=== PATIENT | male | born 2000 ===

== ENCOUNTER 2019-07-31 16:53 | Emergency (ER) | payer BC, SELFPAY ==
[2019-07-31 17:00] VITALS: BP 126/71; PULSE 87; RESP 18; O2SAT 99; BMI 24.4
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
[2019-07-31] MEDS: ibuprofen 600 mg Tablet PO (18:53)
--- NOTE | 2019-07-31 20:10 | PC.NURSE ---
Pt refused crutches; states he has some at home. C-collar was applied.
[2019-07-31 20:18] VITALS: BP 124/75; PULSE 88; RESP 12; O2SAT 97
--- NOTE | 2019-08-01 15:25 | DCPLANNER ---
installation manager had message to refer patient to [facility]. installation manager called [facility], faxed patients information to the clinic. installation manager will call for appointment information.
--- NOTE | 2019-08-22 11:58 | DCPLANNER ---
Patient did attend appointment scheduled with [facility] on 08.21.19.
== END 2019-07-31 20:20 | disposition home or self-care (01) ==
PROVIDERS: Emergency Provider Physician Assistant; PCP Nurse Practitioner Family
DX: S12.031A Nondisplaced posterior arch fracture of first cervical vertebra, initial encounter for closed fracture (principal); S93.491A Sprain of other ligament of right ankle, initial encounter; V53.6XXA Passenger in pick-up truck or van injured in collision with car, pick-up truck or van in traffic accident, initial encounter
CPT/HCPCS: 12345; 70450; 72125; 73610; 73620; 99281; 99283

== ENCOUNTER 2019-08-07 | Outpatient (CLI) | payer SELFPAY | END 2019-08-07 23:00 | disposition home or self-care (01) | LOC: SPT 10-21 10:27 | PROVIDERS: PCP Nurse Practitioner Family; Referring Provider Nurse Practitioner Family; Visit Provider Nurse Practitioner Family | DX: Z46.89 Encounter for fitting and adjustment of other specified devices (principal); S12.031D Nondisplaced posterior arch fracture of first cervical vertebra, subsequent encounter for fracture with routine healing; X58.XXXD Exposure to other specified factors, subsequent encounter | CPT/HCPCS: 97760; L0174 ==